=== PATIENT | female | born 1995 | race Caucasian/White ===

== ENCOUNTER 2025-08-25 15:52 | Outpatient (CLI) | payer OTHER, SELFPAY | END 2025-08-25 15:53 | disposition home or self-care (01) | PROVIDERS: Visit Provider Obstetrics & Gynecology | DX: N91.2 Amenorrhea, unspecified (principal) | CPT/HCPCS: 36415; 84702 ==

== ENCOUNTER 2025-08-27 16:57 | Outpatient (CLI) | payer OTHER, SELFPAY | END 2025-08-27 16:58 | disposition home or self-care (01) | LOC: ANHLAB 16:58 | PROVIDERS: Visit Provider Obstetrics & Gynecology | DX: N91.2 Amenorrhea, unspecified (principal) | CPT/HCPCS: 36415; 84702 ==

== ENCOUNTER 2025-09-02 08:16 | Outpatient (CLI) | payer OTHER, SELFPAY ==
--- NOTE | ~2025-09-02 | US_ITS ---
EXAM/PROCEDURE: US OB <=14 wk fetus w TV HISTORY: dating COMPARISON: None available. TECHNIQUE: Dating ultrasound FINDINGS: A single viable intrauterine gestation is present with heart rate of 104 bpm Probable subchorionic hemorrhage noted measuring 2.3 x 1.5 x 0.7 cm. Right ovary: 4.5 x 3.6 x 4.2 cm. Predominantly simple appearing probable corpus luteal cyst measuring 3.1 cm. Right ovary otherwise appears normal. The left ovary appears normal. EGA by dates and ultrasound are 7 weeks 0 days and 6 weeks 5 days EDC by dates and ultrasound April 21 and April 23, 2026 IMPRESSION: Single viable intrauterine gestation with concordant dates. Probable 2.3 cm subchorionic bleed. Correlate with short interval follow-up ultrasound, and 7-10 days or sooner if clinically appropriate to confirm resolution or stability. Reviewed, dictated and finalized at location A. [facility] [employer] IMPRESSION: Single viable intrauterine gestation with concordant dates. Probable 2.3 cm sub chorionic bleed. Correlate with short interval follow-up ultrasound, and 7-10 d ays or sooner if clinically appropriate to confirm resolution or stability.
== END 2025-09-02 08:17 | disposition home or self-care (01) ==
LOC: GOSHIMG 08:16
PROVIDERS: PCP Student in an Organized Health Care Education/Training Program; Visit Provider Obstetrics & Gynecology
DX: Z34.90 Encounter for supervision of normal pregnancy, unspecified, unspecified trimester (principal)
CPT/HCPCS: 76801; 76817

== ENCOUNTER 2025-09-16 08:53 | Outpatient (CLI) | payer OTHER, SELFPAY ==
--- NOTE | ~2025-09-16 | US_ITS ---
EXAMINATION: US OB <=14 wk fetus w TV DATE: 09/16/2025 09:18 INDICATION: Encounter for supervision of normal TECHNIQUE: Real-time pelvic ultrasound utilizing both a transvaginal and transabdominal probe was performed. The interpreting radiologist was not present for the study. COMPARISON: None. FINDINGS: The uterus measures 8.1 x 4.8 x 5.9 cm. There is an intrauterine gestational sac. A yolk sac and pole are identified. The crown rump length measures 2.2 cm, which correlates with an estimated gestational age of 8 weeks and 6 days. heart motion is identified measuring 169 beats per minute (bpm) by M-mode Doppler. There is a 2.3 x 0.8 cm anechoic fluid collection within the endometrial canal at the left side of the uterine fundus. The right ovary measures 4.5 x 4.0 x 3.3 cm. There are anechoic cysts in the right ovary the largest measuring 3.1 cm. The left ovary measures 2.6 x 1.8 x 1.8 cm. Pressure flow identified in both ovaries on color Doppler. There is minimal amount of anechoic free fluid in the pelvis. IMPRESSION: 1. Single living fetus with heart rate of 169 bpm. 2. Gestational age by ultrasound of 8 weeks 6 day(s) +/- 6 day(s) with ultrasound estimated date of delivery (ALEX) of 04/22/2026. 3. Nonspecific 2.3 x 0.8 cm anechoic fluid collection in the endometrial canal at the left side of the fundus which could represent simple fluid or blood. No other evident subchorionic hematoma. Reviewed, dictated and finalized at location A. [employer] [employer] IMPRESSION: 1. Single living fetus with heart rate of 169 bpm. 2. Gestational age by ultrasound of 8 weeks 6 day(s) +/- 6 day(s) with ultraso und estimated date of delivery (ALEX) of 04/22/2026. 3. Nonspecific 2.3 x 0.8 cm anechoic fluid collection in the endometrial canal at the left side of the fundus which could represent simple fluid or blood. No other evident subchorionic hematoma.
== END 2025-09-16 08:54 | disposition home or self-care (01) ==
LOC: GOSHIMG 08:53
PROVIDERS: PCP Student in an Organized Health Care Education/Training Program; Visit Provider Obstetrics & Gynecology
DX: O41.8X10 Other specified disorders of amniotic fluid and membranes, first trimester, not applicable or unspecified (principal); O46.8X1 Other antepartum hemorrhage, first trimester; Z3A.00 Weeks of gestation of pregnancy not specified
CPT/HCPCS: 76801; 76817